=== PATIENT | male | born 1990 | race Caucasian/White ===

== ENCOUNTER 2017-02-15 12:32 | Emergency (ER) | payer OTHER ==
[2017-02-15 14:37] LABS: BASOPHIL 0.2 % (0-2); EOSINOPHIL 2.1 % (0-5); HCT 46.3 % (42.0-52.0); LYMPHOCYTE 26.4 % (15-48); MCH 31.7 pg (25.0-31.0); MCHC 34.6 g/dL (32.0-36.0); MCV 91.9 fL (78.0-100.0); MONOCYTE 6.7 % (0-12); MPV 9.7 fL (6.0-9.5); NEUTROPHIL 64.6 % (41-80); PLT 222 K/uL (150-400); RBC 5.04 M/uL (4.70-6.00); RDW 13.4 % (11.5-14.0); WBC 10.7 K/uL (4.0-10.5)
[2017-02-15 14:50] LABS: CREATININE 0.8 mg/dL (0.7-1.2); POTASSIUM 4.4 mmol/L (3.5-5.1)
== END 2017-02-15 15:19 | disposition home or self-care (01) ==
LOC: FER 12:32
PROVIDERS: Internal Medicine
DX: R03.0 Elevated blood-pressure reading, without diagnosis of hypertension (principal)
CPT/HCPCS: 36415; 80048; 85025; 99283

== ENCOUNTER 2021-04-09 22:43 | Emergency (ER) | payer OTHER ==
[~2021-04-09 22:43] MED LIST: TRAMADOL HCL50 MG PO
[2021-04-09 23:24] LABS: BASOPHIL 0.3 % (0-2); EOSINOPHIL 1.3 % (0-5); HCT 47.4 % (42.0-52.0); HGB 16.2 g/dl (13.2-18.0); LYMPHOCYTE 32.6 % (15-48); MCH 30.8 pg (25.0-31.0); MCHC 34.2 g/dL (32.0-36.0); MCV 90.1 fL (78.0-100.0); MPV 9.1 fL (6.0-9.5); NEUTROPHIL 58.5 % (41-80); NRBC 0; PLT 276 K/uL (150-400); RBC 5.26 M/uL (4.70-6.00); RDW 12.5 % (11.5-14.0); WBC 10.9 K/uL (4.0-10.5)
[2021-04-09 23:39] LABS: INR 1.01 (0.9-1.2); PROTHROMBIN TIME 12.7 SECONDS (11.8-13.4); PTT 28.4 SECONDS (24.4-34.7)
[2021-04-09 23:46] LABS: ALBUMIN 3.9 g/dL (3.4-5.0); BILIRUBIN - TOTAL 0.3 mg/dL (0.2-1.0); BUN/CREAT RATIO (CALC) 13.7 RATIO; CREATININE 1.02 mg/dL (0.67-1.17); GLOBULIN (CALCULATION) 3.3 g/dL; POTASSIUM 3.5 mmol/L (3.5-5.1); TOTAL PROTEIN 7.2 g/dL (6.4-8.2)
== END 2021-04-10 01:49 | disposition left against medical advice (07) ==
LOC: FER 22:43
PROVIDERS: Emergency Medicine Emergency Medical Services
DX: Z53.8 Procedure and treatment not carried out for other reasons (principal)
CPT/HCPCS: 36415; 71045; 80053; 84484; 85025; 85610; 85730; 93005